=== PATIENT | female | born 1970 | race African-American/Black ===

== ENCOUNTER → 2018-10-22 | Day surgery (SDC) | payer MEDICARE, OTHER ==
[2018-10-17 12:36] LABS: BASOPHILS # (AUTO) 0.1 (0.0-0.1); BASOPHILS % 0.7 % (0.0-1.0); EOSINOPHILS # (AUTO) 0.1 (0.0-0.4); EOSINOPHILS % 1.1 % (0.0-6.0); HEMATOCRIT 41.2 % (34.2-44.1); HEMOGLOBIN 13.4 g/dL (12.0-16.0); LYMPHOCYTES # (AUTO) 2.5 (1.0-3.2); LYMPHOCYTES % 33.2 % (18.0-39.1); MEAN CORPUSCULAR HEMOGLOBIN 32.1 pg (28-32); MEAN CORPUSCULAR HGB CONC 32.5 g/dL (31-35); MEAN CORPUSCULAR VOLUME 98.8 fL (81-99); MONOCYTES # (AUTO) 0.5 (0.2-0.8); MONOCYTES % 6.5 % (4.4-11.3); NEUTROPHILS # (AUTO) 4.4 (2.1-6.9); NEUTROPHILS % 58.1 % (38.7-80.0); PLATELET COUNT 246 x10e3/uL (140-360); RED BLOOD COUNT 4.17 x10e6/uL (3.6-5.1); RED CELL DISTRIBUTION WIDTH 15.6 % (11.7-14.4)
[2018-10-17 12:37] LABS: BILIRUBIN,URINE NEGATIVE (NEGATIVE); CLARITY,URINE CLEAR (CLEAR); COLOR,URINE YELLOW (YELLOW); KETONES,URINE NEGATIVE (NEGATIVE); LEUKOCYTE ESTERASE ,URINE NEGATIVE (NEGATIVE); NITRITE,URINE NEGATIVE (NEGATIVE); PROTEIN,URINE DIPSTICK TRACE (NEGATIVE); URINE UROBILINOGEN 0.2 mg/dL (0.2 - 1)
[2018-10-17 12:55] LABS: INR 1.18; PARTIAL THROMBOPLASTIN TIME 28.6 seconds (23.8-35.5); PROTHROMBIN TIME 15.6 seconds (11.9-14.5)
[2018-10-17 12:59] LABS: BLOOD UREA NITROGEN 8 mg/dL (7-26); BUN/CREATININE RATIO 11 (6-25); CALCIUM 9.8 mg/dL (8.4-10.2); CARBON DIOXIDE 25 mmol/L (22-29); CHLORIDE 105 mmol/L (98-107); EST GLOMERULAR FILTRATION RATE > 60 ML/MIN (60-); GLUCOSE 82 mg/dL (74-118); SODIUM 141 mmol/L (136-145)
--- NOTE | 2018-10-17 13:02 | Diagnostic Imaging Report ---
Chest, 2 views, 10/17/2018. History: Preop, bunion surgery. Comparison: None available. Findings: The cardiomediastinal silhouette and pulmonary vasculature are within normal limits. The lungs are clear without evidence of consolidation or pleural effusion. Multiple surgical clips are present in the left upper quadrant of the abdomen. There are no acute osseous or soft tissue abnormalities. Impression: No acute cardiopulmonary abnormality. Signed by: Otto Kolb on 10/17/2018 12:58 PM
[~2018-10-22] MED LIST: ACETAMINOPHEN 1000 MG/100 ML 100 ML IV ONE; AMBIEN10 MG PO; BACITRACIN 50,000 UNIT VIAL ONE; BUPIVACAINE HCL 0.5% INJ 30 ML VIAL INJ ONE; CEFAZOLIN SOD 1 GM/NS 50ML 100 ML IV ONE; DEXAMETHASONE SOD PHOS INJ 4 MG/ML VIAL ONE; FENTANYL CITRATE/PF 100MCG/2 ML INJ ONE; HYDROCODONE/APAP 5MG-325MG TAB ONE; LIDOCAINE HCL 1% LOCAL INJ 20 ML VIAL ONE; LIDOCAINE HCL 2% LOCAL INJ 5 ML SDV VIAL INJ ONE; MIDAZOLAM HCL 2 MG/2 ML VIAL ONE; ONDANSETRON HCL INJ 2MG/ML 2ML 2 MG/ML VIAL ONE; PROPOFOL IV EMULSION 10 MG/ML 20 ML VIAL ONE; SEVOFLURANE INHAL SOLN 250 ML PEN BTL ONE
--- OUTSIDE RECORDS SUMMARY | 2018-10-22 11:34 | XMS REPORT ---
Author Author Admin, [place] Organization 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 Problem Name Problem Code Onset Date Status Entry Date Provider Comment Standard Description Annotate Arthritis, knees, bilateral 716.98 Active Philomena GUERRAP Arthropathy unspecified, involving other unspecified sites Bunion, right 727.1 Active Philomena GUERRAP Bunion Neuropathic pain 729.2 Active Philomena Bagley PROGRAM ARRANGER Neuralgia, neuritis, and radiculitis, unspecified SCHIZOAFFECTIVE DISORDER, BIPOLAR TYPE Active Yadira Rodrigues 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 Schizoaffective disorder, unspecified Annual exam V70.0 Active Philomena GAVIN Routine general medical examination at a health care facility Anxiety depression 300.4 Active Philomena GUERRAP Dysthymic disorder Calluses, feet, bilateral 700 Active Philomena GUERRAP Corns and callosities Knee pain, left 719.46 Active Philomena GUERRAP Pain in joint involving lower leg Mammogram, Screening V76.12 Active Philomena GUERRAP Other screening mammogram Overweight Active Philomena GUERRAP Overweight Vertigo 386.10 Active Philomena GUERRAP Peripheral vertigo, unspecified Screening, STD V74.5 Inactive Philomenasanjiv Bagley [facility] Screening examination for venereal disease Screening, STD ICD-V74.5 Inactive Philomenasanjiv Bagley PROGRAM ARRANGER Medication List Medication Instructions Start Date Stop Date Generic Name NDC Status Provider Patient Instruction GABAPENTIN 100 MG ORAL CAPSULE 1 by mouth three times a day GABAPENTIN 89908820275 Active Philomenasajniv Bagley [facility] Active MECLIZINE HCL 25 MG ORAL TABLET 1 by mouth 3 times a day as needed MECLIZINE HCL 78474235950 Active Philomena Bagley [facility] Active NAPROXEN 500 MG ORAL TABLET 1 by mouth twice a day as needed for pain and inflammation NAPROXEN 03700027310 Active Philomenasanjiv Bagley [facility] Active Immunizations Vaccine Administration Date Value Standard Description influenza immunization (Flu Vax) has been administered given influenza virus vaccine, unspecified formulation Vital Signs Date Name Value Unit Range Description blood pressure, diastolic 75 mm[Hg] BP craig blood pressure, systolic 124 mm[Hg] BP sys height E&M 64 [in_us] Bdy height pulse rate E&M 84 /min Heart rate respiratory rate E&M 19 /min Resp rate temperature E&M 98.8 [degF] Body temperature weight E&M 195.40 [lb_av] Weight Measured blood pressure, diastolic 88 mm[Hg] BP craig blood pressure, systolic 125 mm[Hg] BP sys height E&M 64 [in_us] Bdy height pulse rate E&M 81 /min Heart rate respiratory rate E&M 20 /min Resp rate temperature E&M 98 [degF] Body temperature weight E&M 173.40 [lb_av] Weight Measured Diagnostic Results Date Name Value Unit Range Description Lab Report: CBC With Differential/Platelet, Comp. Metabolic Panel (14), ... - Chemistry thyroid stimulating hormone, serum 1.490 u[iU]/mL 0.450-4.500 very low density lipoproteins 16 mg/dL 5-40 chloride, serum 104 mmol/L 96-106 urea nitrogen, blood 13 mg/dL 6-24 Lab Report: CBC With Differential/Platelet, Comp. Metabolic Panel (14), ... - Hematology mean corpuscular hemoglobin concentration, RBC 30.3 G/DL % 31.5-35.7 erythrocyte (RBC) count 4.00 X10E6/UL 10*6/mm3 3.77-5.28 Lab Report: CBC With Differential/Platelet, Comp. Metabolic Panel (14), ... - Chemistry Absolute Neutrophils 3.0 X10E3/UL 10*3/uL 1.4-7.0 LDL cholesterol, serum 28 mg/dL 0-99 urea nitrogen/creatinine ratio, serum 14 9-23 Lab Report: CBC With Differential/Platelet, Comp. Metabolic Panel (14), ... - Hematology mean corpuscular volume, RBC 101 fL 79-97 Lab Report: CBC With Differential/Platelet, Comp. Metabolic Panel (14), ... - Chemistry HDL cholesterol, serum 79 mg/dL >39 Lab Report: CBC With Differential/Platelet, Comp. Metabolic Panel (14), ... - Hematology monocytes as percent of blood leukocytes 8 % Not Estab. Lab Report: CBC With Differential/Platelet, Comp. Metabolic Panel (14), ... - Chemistry creatinine, serum 0.93 mg/dL 0.57-1.00 albumin/globulin ratio, serum 1.8 1.2-2.2 cholesterol, serum 123 mg/dL 057-244 1136/11/29 bilirubin, serum, total 0.3 mg/dL 0.0-1.2 Lab Report: CBC With Differential/Platelet, Comp. Metabolic Panel (14), ... - Hematology Eosinophil Absolute Count 0.1 X10E3/UL 10*3/uL 0.0-0.4 Lab Report: Chlamydia/GC Amplification - Lab chlamydia DNA probe Negative Negative Lab Report: CBC With Differential/Platelet, Comp. Metabolic Panel (14), ... - Chemistry aspartate aminotransferase (SGOT), serum 23 U/L 0-40 Lab Report: CBC With Differential/Platelet, Comp. Metabolic Panel (14), ... - Hematology red blood cell distribution width 15.4 % 12.3-15.4 leukocyte count, blood 6.2 X10E3/UL 10*3/mm3 3.4-10.8 Lab Report: CBC With Differential/Platelet, Comp. Metabolic Panel (14), ... - Chemistry potassium, serum 4.5 mmol/L 3.5-5.2 immature granulocytes, percentage of total cells, blood 0 % Not Estab. albumin, serum 4.3 g/dL 3.5-5.5 Lab Report: CBC With Differential/Platelet, Comp. Metabolic Panel (14), ... - Hematology lymphocyte count, blood, automated 2.7 X10E3/UL 10*3/mm3 0.7-3.1 hematocrit, blood 40.2 % 34.0-46.6 Lab Report: Chlamydia/GC Amplification - Microbiology Neisseria gonorrhoeae DNA probe Negative Negative Lab Report: CBC With Differential/Platelet, Comp. Metabolic Panel (14), ... - Chemistry sodium, serum 142 mmol/L 134-144 Lab Report: CBC With Differential/Platelet, Comp. Metabolic Panel (14), ... - Hematology neutrophils as percent of blood leukocytes 48 % Not Estab. basophils as percent of blood leukocytes 0 % Not Estab. Lab Report: CBC With Differential/Platelet, Comp. Metabolic Panel (14), ... - Serology rapid plasma reagin antibody, serum Non Reactive Non Reactive Lab Report: CBC With Differential/Platelet, Comp. Metabolic Panel (14), ... - Chemistry carbon dioxide, venous blood 27 mmol/L 20-29 triglyceride, serum, fasting 78 mg/dL 0-149 calcium, serum 9.6 mg/dL 8.7-10.2 alanine aminotransferase (SGPT), serum 14 U/L 0-32 Lab Report: CBC With Differential/Platelet, Comp. Metabolic Panel (14), ... - Hematology mean corpuscular hemoglobin, RBC 30.5 pg 26.6-33.0 Lab Report: CBC With Differential/Platelet, Comp. Metabolic Panel (14), ... - Chemistry protein, total, serum 6.7 g/dL 6.0-8.5 alkaline phosphatase, serum 102 U/L 39-117 Lab Report: CBC With Differential/Platelet, Comp. Metabolic Panel (14), ... - Hematology hemoglobin, blood 12.2 g/dL 11.1-15.9 lymphocytes as percent of blood leukocytes 43 % Not Estab. Lab Report: CBC With Differential/Platelet, Comp. Metabolic Panel (14), ... - Chemistry hemoglobin A1C, blood, as % of total hemoglobin 5.1 % 4.8-5.6 Lab Report: CBC With Differential/Platelet, Comp. Metabolic Panel (14), ... - Genetics/fertility eGFR if 85 mL/min/1.73m2 >59 Lab Report: CBC With Differential/Platelet, Comp. Metabolic Panel (14), ... - Hematology basophil count, absolute 0.0 x10E3/uL 0.0-0.2 Lab Report: CBC With Differential/Platelet, Comp. Metabolic Panel (14), ... - Chemistry globulin, serum 2.4 1.5-4.5 Estimated Glomerular Filtration Rate (calc) 74 mL/min/1.73m2 >59 Lab Report: CBC With Differential/Platelet, Comp. Metabolic Panel (14), ... - Hematology eosinophils as percent of blood leukocytes 1 % Not Estab. Lab Report: CBC With Differential/Platelet, Comp. Metabolic Panel (14), ... - Chemistry blood glucose, random 91 mg/dL 65-99 Lab Report: CBC With Differential/Platelet, Comp. Metabolic Panel (14), ... - Hematology monocyte count, blood, automated 0.5 X10E3/UL 10*3/uL 0.1-0.9 platelet count 291 X10E3/UL 10*3/mm3 150-379 Encounters Date Encounter Provider Code Facility 13:55:34 CDT Est Patient Exp Problem - 13027 Philomena Bagley PROGRAM ARRANGER CPT-71204 [facility] Procedures Code Procedure Name Date Entry Date Standard Description CPT-58570 Psychotherapy 45 (38-52*) min - 52046 (with patient and/or family member) 11:18:36 CDT CPT-32166 Psychotherapy 45 (38-52*) min - 05788 (with patient and/or family member) 14:30:24 CDT CPT-59309 Psychotherapy 45 (38-52*) min - 40168 (with patient and/or family member) 16:11:18 CDT CPT-91895 Psychotherapy 45 (38-52*) min - 81048 (with patient and/or family member) 12:44:02 CDT CPT-71680 Psychotherapy 45 (38-52*) min - 09275 (with patient and/or family member) 17:23:17 [facility] CPT-25770 Diagnostic evaluation (no medical) - 45009 23:24:03 [facility] CPT-83505 New Patient Well Exam (40 - 64 Yrs) - 18084 13:10:30 [facility]
--- OUTSIDE RECORDS SUMMARY | 2018-10-22 11:34 | XMS REPORT ---
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 Allergies, Adverse Reactions, Alerts This patient has no known allergies or adverse reactions. Medications This patient has no known medications. Results Test Description Test Time Test Comments Text Results Atomic Results Result Comments CHEST 2 VIEWS 2018-10-17 12:58:00 [place] [address] Patient Name: ERIN CROWLEY MR #: [id number] : 1970 Age/Sex: 47/F Req #: [id number] Adm Physician: Ordered by: AMPARO EDEN DPM Report #: [id number] Location: OR Room/Bed: Procedure: [id number] DX/CHEST 2 VIEWS Exam Date: 10/17/18 Exam Time: 1226 REPORT STATUS: Signed Chest, 2 views, 10/17/2018. History: Preop, bunion surgery. Comparison: None available. Findings: The cardiomediastinal silhouette and pulmonary vasculature are within normal limits. The lungs are clear without evidence of consolidation or pleural effusion. Multiple surgical clips are present in the left upper quadrant of the abdomen. There are no acute osseous or soft tissue abnormalities. Impression: No acute cardiopulmonary abnormality. Signed by: Benson Kolb on 10/17/2018 12:58 PM Dictated By: BENSON KOLB MD 125 Transcribed By: ADOLFO on 10/17/18 1258 COPY TO: AMPARO EDEN DPM
[2018-10-22 17:40] VITALS: BP 131/83
--- NOTE | 2018-10-22 18:21 | Diagnostic Imaging Report ---
RIGHT FOOT X-RAY - 3 VIEWS HISTORY: ^S/P BUNIONECTOMY ^[id number] ^1737 ^PACU 8 COMPARISON: None available. FINDINGS: Bones: Postsurgical changes in the distal right first and third metatarsals with traversing screws. No acute fractures. Osseous alignment is within normal limits. Joints: The joint spaces are well-maintained. Soft tissues: Postsurgical soft tissue swelling surrounding the distal foot. IMPRESSION: Postsurgical changes in the right first and third metatarsals without acute fractures. Signed by: Dr. Sylwia Boudreaux M.D. on 10/22/2018 6:18 PM
--- NOTE | 2018-10-22 23:35 | Operative Report ---
DATE OF PROCEDURE: 10/22/2018 SURGEON: Frankie Donaldson DPM QUALITY CONTROL REPRESENTATIVE: None. PREOPERATIVE DIAGNOSES: 1. Painful hallux abducto valgus deformity, right foot. 2. Exostosis/hypertrophic bone to the medial right great toe. POSTOPERATIVE DIAGNOSES: 1. Painful hallux abducto valgus deformity, right foot. 2. Exostosis/hypertrophic bone to the medial right great toe. PROCEDURE PERFORMED: 1. Go bunionectomy (chevron bunionectomy) with 2.5 mm x 22 mm right cannulated internal screw fixation to the right foot. 2. Resection of hypertrophic bone/exostectomy to the medial aspect of the right great toe.HIPJ. PATHOLOGY: None. ANESTHESIA: General with a total of 30 mL of 1:1 mix of 1% lidocaine plain and 0.5% Marcaine plain. ESTIMATED BLOOD LOSS: None. COMPLICATIONS: None. IMPLANTS: 2.5 mm x 22 mm cannulated right screw. INDICATIONS FOR PROCEDURE: The patient is a 47-year-old female, who has had a painful bunion to the right foot for several years duration. The patient has exhausted all the conservative treatments and at this time due to severity of pain, this warranted surgical correction. She also has a spur on the medial aspect of the right great toe, which also was painful and wanted surgical resection of this area. All the risks and complications of the surgery were explained to the patient including infection, pain, swelling, numbness, bleeding, delayed healing, non-healing, delayed union, and nonunion and possible need for further surgery as well as neuritis. At this time, the patient was given opportunity to ask questions, and all questions were answered in informed manner.. There were no guarantees implied or given. Therefore, the above stated procedure was performed. NARRATIVE OF PROCEDRUE: Preoperatively, the patient was identified as Zaria Mercer. The right foot was marked 30 minutes prior to the surgery, the patient was administered 2 g of Ancef. She was then taken to the OR and placed on the OR table in a supine position. After a successful general anesthetic, a right ankle tourniquet was applied. Appropriate time-out was performed with identification of the patient and procedure. The right foot was infiltrated with a total of 30 mL of 1:1 mix of 1% lidocaine plain and 0.5% Marcaine plain in Rogers block fashion. The mini C-arm was utilized to take a picture at this point. The right foot was then prepped and draped in usual sterile manner. The right foot was now elevated and Esmarch was utilized to exsanguinate the blood. Tourniquet was now inflated to 250 mmHg. Attention was now directed to the medial aspect of the right great toe, which is hypertrophic bone. A dorsal linear incision was made overlying the distal interphalangeal joint in which the incision is now deepened down to the level of the subcutaneous tissue being careful to identify and retract all vital neurovascular structures and to cauterize all vessels as needed. A dorsal linear capsulotomy was performed to the point where the capsule was reflected both medially and laterally to allow exposure of the hypertrophic bone. At this time, once can see and feel the enlarged hypertrophic bone with a bone spur. Utilizing an oscillating bone saw, the hypertrophic bone was resected and was passed off the operative field. A reciprocating rasp along with hand held rasp was used to smooth the entire area. The mini C-arm was utilized to evaluate. At this time, the deformity that was present previously is no longer present. The area was then irrigated with copious amounts of normal saline. After complete irrigation, the deep closure of the capsule was then reapproximated utilizing 4-0 Vicryl in a simple interrupted stitch. For skin closure, 4-0 nylon was utilized in a simple interrupted stitch. Attention was now directed towards the aspect of the right first metatarsophalangeal joint in which a dorsal linear incision was made overlying the first metatarsophalangeal joint. Utilizing a #15 blade, the incision was now deepened down to the level of the subcutaneous tissue being careful to identify and retract all vital neurovascular structures and to cauterize all vessels as needed. At this time, an inverted L capsulotomy was performed to the point where the metatarsal head and the head was brought on to the field. The prominent extreme bony prominence was noted medially and at this time utilizing an oscillating bone saw, the medial eminence was resected and was passed off the operative field. Via the same incision a successful lateral release was also performed and at this time, the bone dorsally was also shaved. The mini C- arm was utilized at this point. The resection was noted to be excellent and at this time, the right foot was now bend and the first metatarsal was now parallel to the floor and a chevron type osteotomy with the apex distally and the base proximally was now performed. The plantar shelf was now cut utilizing the oscillating bone saw and then the dorsal arm was cut. The head and capital fragment was now translocated and was freed and at this time the capital fragment was now translocated laterally. The leg was now straightened out the head was impacted on to the first metatarsal shaft and at this time, the osteotomy was now stabilized utilizing a K-wire and then I proceeded with placing a 2.5 mm x 22 mm cannulated right screw across the osteotomy site. The mini C-arm was utilized to evaluate at this time with good positioning and good compression across the osteotomy site. The K-wire was removed and at this time, the osteotomy was noted to be nice and stable at this time. The prominent medial eminence was resected and was passed off the operative field. At this time, the mini C-arm was utilized to evaluate. At this time, the deformity has been corrected and there was good apposition across the osteotomy site. The kaz was now utilized to smooth the medial head of the first metatarsal to a nice smooth contour along with hand held rasp. After assurring the area was nice and smooth, I then proceeded with irrigating the wound with copious amounts of normal saline and after complete irrigation, the mini C- arm was utilized to evaluate both with AP and lateral view and again the placement and the osteotomy was noted to be excellent with good positioning and placement of the screw. At this time, the excess capsule was resected and the capsule area via the same incision, an extensor hallucis brevis tendon was tenectomized as well. The capsule was then reapproximated utilizing 3-0 Vicryl in a simple interrupted stitch as well as 4-0 Vicryl in a simple interrupted stitch for the deep soft tissue and for skin closure, 4-0 nylon was utilized in a simple interrupted stitch. A mini C-arm was utilized to evaluate and this time the deformity is noted to have been corrected at this point with good placement of the screw and positioning at this time. It is noted that the patient will need a Lapidus bunionectomy in the future for stabilization of the first metatarsal cuneiform joint. A Betadine-soaked adaptic and guaze was applied to the right great toe and the first metatarsal along with dry sterile compressive dressing. The tourniquet was released and cap refill time was noted to all digits to 1 through 5 of the right foot. The patient did tolerate the procedure well and left the OR to the recovery room with vital signs stable and neurovascular status back to preoperative condition. She will be placed in a pneumatic CAM walker and she is to be nonweightbearing and will follow up with me in my office on Saturday. BRANDT Naidu/MODL /[id number] MARCELLA
== END | disposition home or self-care (01) ==
LOC: OR 11:25
PROVIDERS: ATTEND Podiatrist
DX: M20.11 Hallux valgus (acquired), right foot (principal); M89.371 Hypertrophy of bone, right ankle and foot; M77.51 Other enthesopathy of right foot and ankle; M25.771 Osteophyte, right ankle; E66.9 Obesity, unspecified; F31.9 Bipolar disorder, unspecified; F41.9 Anxiety disorder, unspecified; Z72.0 Tobacco use; Z01.810 Encounter for preprocedural cardiovascular examination; Z01.812 Encounter for preprocedural laboratory examination; Z01.818 Encounter for other preprocedural examination
CPT/HCPCS: 28108; 28296; 36415 ×2; 71046; 73630; 80048; 81003; 84702; 85025; 85610; 85730; 93005; C1713; J0131; J0690; J1100; J2001 ×2; J2250; J2405; J2704; J3010